=== PATIENT | male | born 1955 | race Caucasian/White ===

== ENCOUNTER 2021-05-10 11:29 | Inpatient (IN) | payer MEDICARE ==
[2021-05-10 11:50] LABS: Basophils # (A) 0.1 k/uL (0-0.2); Basophils % (A) 1 %; Eosinophils # (A) 0.2 k/uL (0-0.7); Eosinophils % (A) 4 %; HCT 52.1 % (39.0-53.0); HGB 17.4 gm/dL (13.0-17.5); Lymphocytes % (A) 18 %; MCH 29.9 pg (25.0-35.0); MCHC 33.4 g/dL (31.0-37.0); MCV 89.6 fL (80.0-100.0); Mean Platelet Volume 7.7; Monocytes # (A) 0.3 k/uL (0-1.0); Monocytes % (A) 6 %; Neutrophils # (A) 3.6 k/uL (1.3-7.7); Neutrophils % (A) 69 %; Platelet Count 146 k/uL (150-450); RBC 5.82 m/uL (4.30-5.90); RDW 13.2 % (11.5-15.5); WBC 5.2 k/uL (3.8-10.6)
[2021-05-10] MEDS ORDERED: MORPHINE SULFATE 2 MG/ML SYRINGE IVP PRN (11:56)
[2021-05-10 12:02] LABS: Albumin 4.5 g/dL (3.5-5.0); Calcium 9.2 mg/dL (8.4-10.2); Magnesium 2.2 mg/dL (1.6-2.3); Potassium 4.2 mmol/L (3.5-5.1); Total Bilirubin 0.9 mg/dL (0.2-1.3); Total Protein 7.6 g/dL (6.3-8.2)
--- NOTE | 2021-05-10 12:04 | ED ---
General Adult HPI - General Chief complaint: Chest Pain Stated complaint: STEMI Source: patient, EMS, RN notes reviewed, old records reviewed Mode of arrival: EMS Limitations: no limitations - History of Present Illness Initial comments: 65-year-old male history of hypertension presents from outside hospital with acute ST segment elevated myocardial infarction. Patient had presented to outside hospital with chest discomfort and was noted to have an inferior ST segment elevated myocardial infarction. He was given aspirin, nitroglycerin, and TNKase. He was transferred for cardiology evaluation. He has no chest pain at the time my evaluation. He had 2 episodes over the past 12 hours which are currently completely resolved. No dyspnea. No diaphoresis or vomiting. No prior history of CAD. - Related Data Home Medications Medication Instructions Recorded Confirmed Compounded Thyroid Unknown 1 cap PO HS 05/10/21 05/10/21 Empagliflozin [Jardiance] 5 mg PO DAILY 05/10/21 05/10/21 Allergies Allergy/AdvReac Type Severity Reaction Status Date / Time cephalexin [From Keflex] Allergy Abdominal Verified 05/10/21 11:42 Pain Penicillins Allergy Unknown Verified 05/10/21 11:42 Childhood codeine AdvReac Abdominal Verified 05/10/21 11:42 Pain Review of Systems ROS Statement: Those systems with pertinent positive or pertinent negative responses have been documented in the HPI. ROS Other: All systems not noted in ROS Statement are negative. Past Medical History Past Medical History: Asthma History of Any Multi-Drug Resistant Organisms: None Reported Past Surgical History: No Surgical Hx Reported Past Psychological History: No Psychological Hx Reported Smoking Status: Never smoker Past Alcohol Use History: None Reported Past Drug Use History: None Reported General Exam Limitations: no limitations General appearance: alert, in no apparent distress Head exam: Present: atraumatic, normocephalic Eye exam: Present: normal appearance, PERRL ENT exam: Present: normal exam Neck exam: Present: normal inspection. Absent: tenderness, meningismus Respiratory exam: Present: normal lung sounds bilaterally. Absent: respiratory distress, wheezes Cardiovascular Exam: Present: normal rhythm, bradycardia GI/Abdominal exam: Present: soft. Absent: distended, tenderness, guarding Extremities exam: Present: normal inspection, normal capillary refill. Absent: pedal edema, calf tenderness Neurological exam: Present: alert, oriented X3, CN II-XII intact. Absent: motor sensory deficit Psychiatric exam: Present: normal affect, normal mood Skin exam: Present: warm, dry, intact. Absent: cyanosis, diaphoretic Course Vital Signs 05/10/21 11:30 Temperature 98.1 F Pulse Rate 72 Respiratory 18 Rate Blood Pressure 141/105 O2 Sat by Pulse 94 L Oximetry - Reevaluation(s) Reevaluation #1: 05/10/21 12:00 There are currently no ICU beds. Patient will be monitored in the emergency department and will possibly be admitted to a 3 S. telemetry bed. Reevaluation #2: 05/10/21 12:[address] Danielson, recommends aspirin and heparin. These orders have been initiated. EKG Findings - EKG Comments: EKG Findings:: Sinus bradycardia low voltage, rate of 51, T-wave inversion and ST segment depression in lead 3 and aVF. KS interval 173, QRS duration 106, QTC 365, no ST segment elevation. Medical Decision Making - Medical Decision Making 65-year-old male presenting with acute inferior TX status post TNK, at outside hospital. Patient chest pain-free. Repeat laboratory studies will be ordered these results are pending. I did discuss case with the admitting physician Dr. Hoover as well as municipal clerk Dr. Danielson and the test facility engineer Dr. Louis. At this time the patient will be held in the emergency department as there is no ICU beds. If patient remains stable he will be a candidate for a 3 S. stepdown bed. - Lab Data Result diagrams: 05/10/21 11:34 Lab Results 05/10/21 Range/Units 11:34 WBC 5.2 (3.8-10.6) k/uL RBC 5.82 (4.30-5.90) m/uL Hgb 17.4 (13.0-17.5) gm/dL Hct 52.1 (39.0-53.0) % MCV 89.6 (80.0-100.0) fL MCH 29.9 (25.0-35.0) pg MCHC 33.4 (31.0-37.0) g/dL RDW 13.2 (11.5-15.5) % Plt Count 146 L (150-450) k/uL MPV 7.7 Neutrophils % 69 % Lymphocytes % 18 % Monocytes % 6 % Eosinophils % 4 % Basophils % 1 % Neutrophils # 3.6 (1.3-7.7) k/uL Lymphocytes # 1.0 (1.0-4.8) k/uL Monocytes # 0.3 (0-1.0) k/uL Eosinophils # 0.2 (0-0.7) k/uL Basophils # 0.1 (0-0.2) k/uL Disposition Clinical Impression: ST elevation myocardial infarction (STEMI) Disposition: ADMITTED IP TO THIS HOSP Condition: Serious Is patient prescribed a controlled substance at d/c from ED?: No Referrals: Tian Xavier MD [Primary Care Provider] - 1-2 days Time of Disposition: 12:15
[2021-05-10 12:12] LABS: Partial Thromboplastin Time 23.4 sec (22.0-30.0); Prothrombin Time 10.6 sec (9.0-12.0)
[2021-05-10] MEDS ORDERED: CALCIUM CARBONATE 500 MG CHEWABLE PO PRN (12:30)
[2021-05-10] MEDS ORDERED: MAG HYDROX/AL HYDROX/SIMETH 30 ML CUP PO PRN (12:30)
[2021-05-10] MEDS ORDERED: ONDANSETRON 4 MG/2 ML VIAL IVP PRN (12:30)
[2021-05-10] MEDS ORDERED: NALOXONE 0.4 MG/ML 1 ML VIAL IV PRN (12:30)
[2021-05-10] MEDS ORDERED: MORPHINE SULFATE 4 MG/ML SYRINGE IVP PRN (12:30)
--- NOTE | 2021-05-10 12:36 | P.HPIM ---
History of Present Illness H&P Date: 05/10/21 65-year-old male with past medical history of hypothyroidism and admitted to the hospital with chest pain substernally patient was in another hospital where he was found to have ST elevation [place] given TPA Chest pain resolved' Patient feels much better today Constitutional: No acute distress, conversant, pleasant Eyes: Anicteric sclerae, moist conjunctiva, no lid-lag PERRLA ENMT: NC/AT Oropharynx clear, no erythema, exudates Neck: Supple, FROM, no masses, or JVD No carotid bruits No thyromegaly Lungs: Clear to auscultation Clear to percussion Normal respiratory effort, no accessory muscle use Cardiovascular: Heart regular in rate and rhythm, No murmurs, gallops, or rubs No peripheral edema Abdominal: Soft Nontender, no guarding, rebound or rigidity Abdomen moving with respiration Normoactive bowel sounds No hepatomegaly, No splenomegaly No palpable mass No abdominal wall hernia noted Skin: Normal temperature, tone, texture, turgor No induration No subcutaneous nodules No rash, lesions No ulcers Extremities: No digital cyanosis No clubbing Pedal pulses intact and symmetrical Radial pulses intact and symmetrical Normal gait and station No calf tenderness Psychiatric:Alert and oriented to person, place and time Appropriate affect Intact judgement Neuro: Muscles Strength 5/5 in all 4 extremities Sensation to light touch grossly present throughout Cranial nerves II-XII grossly intact No focal sensory deficits Review of systems and systems has been reviewed all negative and positive findings as per history of present illness ST elevation [place] status post TPA cardiology has been consulted Hypothyroidism Pain control Past Medical History Past Medical History: Asthma History of Any Multi-Drug Resistant Organisms: None Reported Past Surgical History: No Surgical Hx Reported Past Psychological History: No Psychological Hx Reported Smoking Status: Never smoker Past Alcohol Use History: None Reported Past Drug Use History: None Reported Medications and Allergies Home Medications Medication Instructions Recorded Confirmed Type Compounded Thyroid Unknown 1 cap PO HS 05/10/21 05/10/21 History Empagliflozin [Jardiance] 5 mg PO DAILY 05/10/21 05/10/21 History Allergies Allergy/AdvReac Type Severity Reaction Status Date / Time cephalexin [From Keflex] Allergy Abdominal Verified 05/10/21 11:42 Pain Penicillins Allergy Unknown Verified 05/10/21 11:42 Childhood codeine AdvReac Abdominal Verified 05/10/21 11:42 Pain Physical Exam Vitals: Vital Signs Temp Pulse Resp BP Pulse Ox 05/10/21 11:30 98.1 F 72 18 141/105 94 L Intake and Output 05/09/21 05/10/21 05/10/21 22:59 06:59 14:59 Other: Weight 83.915 kg Results CBC & Chem 7: 05/10/21 11:34 05/10/21 11:34 Labs: Abnormal Lab Results - Last 24 Hours (Table) 05/10/21 05/10/21 05/10/21 Range/Units 11:34 11:34 11:34 Plt Count 146 L (150-450) k/uL BUN 24 H (9-20) mg/dL Glucose 140 H (74-99) mg/dL Troponin I 0.382 H* (0.000-0.034) ng/mL
[2021-05-10] MEDS: SODIUM CHLORIDE 0.9% 1,000 ML IV SCH (12:44)
[2021-05-10] MEDS: ATORVASTATIN 80 MG TAB PO SCH ×2 (13:24→13:34)
[2021-05-10] MEDS: HEPARIN SOD,PORK IN 0.45% NACL 25,000 UNIT in 0.45% NACL 1 250ML.BAG IV SCH (13:28)
[2021-05-10] MEDS ORDERED: ALPRAZolam 0.25 MG TAB PO PRN (15:33)
[2021-05-10] MEDS ORDERED: ALPRAZolam 0.5 MG TAB PO PRN (15:33)
--- NOTE | 2021-05-10 15:39 | P.CRDCN ---
History of Present Illness Consult date: 05/10/21 History of present illness: This is a 65-year-old gentleman with history of hypothyroidism and yvu-hbvasjb-zbgoqjsku diabetes mellitus, who lives by himself had sense of chest tightness around 2 AM last night. Patient was able to go to bed, but in the morning around 8:30. Patient again started having discomfort on the left side of chest and left shoulder area. There might have been some radiation to the left arm. It was not very intense but annoying. Patient drove himself to the hospital. His EKG showed mild elevation in inferior leads size to of inferior wall TX. Patient received thrombolytic therapy at the [facility] and was subsequent transferred to this hospital. By the time patient came to the hospital. Patient has been free of any pain. His EKGs showed resolution of the ST elevations with complaints of T-wave inversion in inferior leads and mild bradycardia. Patient had mild nausea. No shortness of breath at the time of my examination patient is very comfortable. Patient will continue current medical therapy. Beta blockers are being held because of bradycardia. He is on aspirin, Plavix and heparin. We'll proceed with cardiac catheterization tomorrow and further recommend she'll depend upon the findings on the cath. Patient already had an echocardiogram Review of Systems As per the chart Past Medical History Past Medical History: Asthma History of Any Multi-Drug Resistant Organisms: None Reported Past Surgical History: No Surgical Hx Reported Past Psychological History: No Psychological Hx Reported Smoking Status: Never smoker Past Alcohol Use History: None Reported Past Drug Use History: None Reported Medications and Allergies Home Medications Medication Instructions Recorded Confirmed Type Compounded Thyroid Unknown 1 cap PO HS 05/10/21 05/10/21 History Empagliflozin [Jardiance] 5 mg PO DAILY 05/10/21 05/10/21 History Allergies Allergy/AdvReac Type Severity Reaction Status Date / Time cephalexin [From Keflex] Allergy Abdominal Verified 05/10/21 11:42 Pain Penicillins Allergy Unknown Verified 05/10/21 11:42 Childhood codeine AdvReac Abdominal Verified 05/10/21 11:42 Pain Physical Exam Vitals: Vital Signs Temp Pulse Resp BP Pulse Ox 05/10/21 13:30 67 18 162/90 95 05/10/21 11:30 98.1 F 72 18 141/105 94 L Intake and Output 0205/10/21 05/10/21 06:59 14:59 22:59 Other: Weight 83.915 kg GENERAL EXAM: Patient is alert and oriented and doesn't appear to be in any acute distress HEENT: Normocephalic. Normal reaction of pupils, equal size, normal range of e xtraocular motion. No erythema or exudates in the throat. NECK: No masses, no nuchal rigidity. CHEST: No chest wall deformity. LUNGS: Equal air entry with no crackles or wheeze. HEART: S1 and S2 normal with no audible mumurs or gallops. Regular rhythm, femorals equal on both sides.. ABDOMEN: No hepatosplenomegaly, normal bowel sounds, no guarding or rigidity. SKIN: No rashes CENTRAL NERVOUS SYSTEM: No focal deficits. EXTREMITIES: No cyanosis, clubbing or edema. Results 05/10/21 11:34 05/10/21 11:34 Cardiac Enzymes 05/10/21 05/10/21 Range/Units 11:34 11:34 AST 34 (17-59) U/L Troponin I 0.382 H* (0.000-0.034) ng/mL Coagulation 05/10/21 Range/Units 11:34 PT 10.6 (9.0-12.0) sec APTT 23.4 (22.0-30.0) sec CBC 05/10/21 Range/Units 11:34 WBC 5.2 (3.8-10.6) k/uL RBC 5.82 (4.30-5.90) m/uL Hgb 17.4 (13.0-17.5) gm/dL Hct 52.1 (39.0-53.0) % Plt Count 146 L (150-450) k/uL Comprehensive Metabolic Panel 05/10/21 Range/Units 11:34 Sodium 137 (137-145) mmol/L Potassium 4.2 (3.5-5.1) mmol/L Chloride 103 (98-107) mmol/L Carbon Dioxide 26 (22-30) mmol/L BUN 24 H (9-20) mg/dL Creatinine 1.16 (0.66-1.25) mg/dL Glucose 140 H (74-99) mg/dL Calcium 9.2 (8.4-10.2) mg/dL AST 34 (17-59) U/L ALT 26 (4-49) U/L Alkaline Phosphatase 66 (38-126) U/L Total Protein 7.6 (6.3-8.2) g/dL Albumin 4.5 (3.5-5.0) g/dL Current Medications Generic Name Dose Route Start Last Admin Trade Name Freq PRN Reason Stop Dose Admin Acetaminophen 650 mg 05/10/21 12:30 Acetaminophen Tab 325 Mg Tab PO Q6HR PRN Mild Pain or Fever > 100.5 Al Hydroxide/Mg Hydroxide 15 ml 05/10/21 12:30 Mag Hydrox/Al Hydrox/Simeth 30 Ml Cup PO Q6HR PRN Indigestion Aspirin 325 mg 05/11/21 09:00 Aspirin 325 Mg Tab PO DAILY [facility] Atorvastatin Calcium 80 mg 05/10/21 12:00 05/10/21 13:34 Atorvastatin 80 Mg Tab PO Not Given DAILY [facility] Calcium Carbonate/Glycine 1,000 mg 05/10/21 12:30 Calcium Carbonate 500 Mg Chewable PO Q4HR PRN Dyspepsia Clopidogrel Bisulfate 75 mg 05/10/21 14:00 Clopidogrel 75 Mg Tab PO DAILY [facility] Heparin Sodium/Sodium Chloride 250 mls @ 10.07 mls/hr 05/10/21 12:00 05/10/21 13:28 25,000 unit/ Sodium Chloride IV 12 units/kg/hr .Q24H JANEE 10.07 mls/hr Administration Protocol 12 UNITS/KG/HR Sodium Chloride 1,000 mls @ 75 mls/hr 05/10/21 12:30 05/10/21 12:44 Saline 0.9% IV Not Given .[id number] [facility] Isosorbide Mononitrate 30 mg 05/11/21 09:00 Isosorbide Mononitrate Er 30 Mg Tab.Er.24h PO DAILY [facility] Lisinopril 5 mg 05/10/21 14:00 Lisinopril 5 Mg Tab PO DAILY [facility] Morphine Sulfate 4 mg 05/10/21 12:30 Morphine Sulfate 4 Mg/Ml Syringe IVP Q4HR PRN Severe Pain Naloxone HCl 0.2 mg 05/10/21 12:30 Naloxone 0.4 Mg/Ml 1 Ml Vial IV Q2M PRN Opioid Reversal Ondansetron HCl 4 mg 05/10/21 12:30 Ondansetron 4 Mg/2 Ml Vial IVP Q8HR PRN Nausea And Vomiting Intake and Output 05/10/21 05/10/21 05/10/21 06:59 14:59 22:59 Other: Weight 83.915 kg Patient Weight 05/11/21 06:59 Weight 83.915 kg 05/10/21 11:34 05/10/21 11:34 EKG Interpretations (text) Sinus rhythm with evidence of inferior wall TX Assessment and Plan (1) Hypothyroidism Current Visit: Yes Status: Acute Code(s): E03.9 - HYPOTHYROIDISM, UNSPECIFIED SNOMED Code(s): 16700102 (2) ST elevation myocardial infarction (STEMI) Current Visit: Yes Status: Acute Code(s): I21.3 - ST ELEVATION (STEMI) MYOCARDIAL IN[facility]ARCTION OF [facility] SITE SNOMED Code(s): 83354923 (3) Non-insulin dependent diabetes mellitus Current Visit: Yes Status: Acute Code(s): [id number] - SNOMED Code(s): 04994972 Plan: Continue current medical therapy including heparin, aspirin and Plavix. Patient is on SRINATH inhibitor and also lipid-lowering agents. Resume all medications. Echocardiogram. Cardiac cath and further intervention as needed
[2021-05-10] MEDS: CLOPIDOGREL 75 MG TAB PO SCH (16:04)
[2021-05-10] MEDS: lisinopriL 5 MG TAB PO SCH (16:04)
[2021-05-10 16:11] LABS: Basophils # (A) 0.1 k/uL (0-0.2); Basophils % (A) 1 %; Eosinophils # (A) 0.2 k/uL (0-0.7); Eosinophils % (A) 3 %; HCT 53.4 % (39.0-53.0); HGB 18.3 gm/dL (13.0-17.5); Lymphocytes # (A) 1.6 k/uL (1.0-4.8); Lymphocytes % (A) 26 %; MCH 30.8 pg (25.0-35.0); MCHC 34.3 g/dL (31.0-37.0); Mean Platelet Volume 7.4; Monocytes # (A) 0.3 k/uL (0-1.0); Monocytes % (A) 5 %; Neutrophils # (A) 3.9 k/uL (1.3-7.7); Neutrophils % (A) 64 %; Platelet Count 172 k/uL (150-450); RBC 5.93 m/uL (4.30-5.90); RDW 13.7 % (11.5-15.5); WBC 6.1 k/uL (3.8-10.6)
--- NOTE | 2021-05-10 16:12 | ECHOF ---
Referral Reason:STEMI MEASUREMENTS -------- HEIGHT: 175.3 cm WEIGHT: 83.9 kg BP: RVIDd: 3.3 cm (< 3.3) IVSd: 1.2 cm (0.6 - 1.1) LVIDd: 5.5 cm (3.9 - 5.3) LVPWd: 1.5 cm (0.6 - 1.1) IVSs: 1.6 cm LVIDs: 3.8 cm LVPWs: 1.9 cm LA Diam: 4.1 cm (2.7 - 3.8) LAESV Index (A-L): 27.28 ml/m Ao Diam: 3.3 cm (2.0 - 3.7) AV Cusp: 1.9 cm (1.5 - 2.6) LA Diam: 3.8 cm (2.7 - 3.8) MV EXCURSION: 21.171 mm (> 18.000) MV EF SLOPE: 84 mm/s (70 - 150) EPSS: 0.6 cm MV E Panfilo: 0.71 m/s MV DecT: 201 ms MV A Panfilo: 0.96 m/s MV E/A Ratio: 0.74 RAP: 5.00 mmHg RVSP: 21.05 mmHg FINDINGS -------- Sinus rhythm. This was a technically adequate study. The left ventricular size is normal. There is moderate concentric left ventricular hypertrophy. O verall left ventricular systolic function is low-normal with, an EF between 50 - 55 %. The right ventricle is normal in size. Normal LA size by volume 22+/-6 ml/m2. The right atrial size is normal. The aortic valve is trileaflet, and appears structurally normal. No aortic stenosis or regurgitation. Mild mitral regurgitation is present. Mild tricuspid regurgitation present. Right ventricular systolic pressure is normal at < 35 mmHg. There is no pulmonic regurgitation present. Echo free space represents a pericardial fat pad. CONCLUSIONS -------- 1. The left ventricular size is normal. 2. There is moderate concentric left ventricular hypertrophy. 3. Overall left ventricular systolic function is low-normal with, an EF between 50 - 55 %. 4. The right ventricle is normal in size. 5. Normal LA size by volume 22+/-6 ml/m2. 6. The right atrial size is normal. 7. The aortic valve is trileaflet, and appears structurally normal. No aortic stenosis or regurgitati on. 8. Mild mitral regurgitation is present. 9. Mild tricuspid regurgitation present. 10. Echo free space represents a pericardial fat pad. ARABIC TEACHER: Hannah Su RDCS
[2021-05-10 20:00] LABS: Glucose,Whole Blood 98 mg/dL (75-99)
[2021-05-10 20:00] LABS: Glucose,Whole Blood 28 mg/dL (75-99)
[2021-05-10] MEDS ORDERED: HEPARIN SODIUM 1,000 UN/ML (10ML VL) IV PRN (23:14)
[2021-05-11] MEDS: SODIUM CHLORIDE 0.9% 1,000 ML IV SCH ×2 (06:36→20:43)
[2021-05-11] MEDS ORDERED: ISOSORBIDE MONONITRATE ER 30 MG TAB.ER.24H PO SCH (09:00)
[2021-05-11] MEDS ORDERED: ASPIRIN 325 MG TAB PO SCH (09:00)
[2021-05-11] MEDS: lisinopriL 5 MG TAB PO SCH (09:01)
[2021-05-11] MEDS: CLOPIDOGREL 75 MG TAB PO SCH (09:01)
[2021-05-11] MEDS: ATORVASTATIN 80 MG TAB PO SCH ×2 (09:01→09:04)
[2021-05-11] MEDS ORDERED: LIDOCAINE 1% INJ 10MG/ML (20 ML MDV) ONE (10:32)
[2021-05-11] MEDS ORDERED: VERAPAMIL 2.5 MG/ML 2 ML AMP ONE (10:32)
[2021-05-11] MEDS ORDERED: IV FLUID CONTINUATION 1,000 ML IV ONE (10:40)
[2021-05-11] MEDS ORDERED: fentaNYL (PF) 50 MCG/ML 2 ML AMP ONE (10:47)
[2021-05-11] MEDS ORDERED: LIDOCAINE 1% INJ 10MG/ML (20 ML MDV) SQ ONE (10:57)
[2021-05-11] MEDS ORDERED: MIDAZOLAM 2 MG/2 ML VIAL IV ONE (10:58)
[2021-05-11] MEDS ORDERED: fentaNYL (PF) 50 MCG/ML 2 ML AMP IV ONE (10:58)
[2021-05-11] MEDS ORDERED: VERAPAMIL SYRINGE (5 MG/10 ML) INTRAARTER ONE (11:00)
[2021-05-11] MEDS: HEPARIN SODIUM 1,000 UN/ML (10ML VL) IV ONE ×2 (11:01→11:15)
[2021-05-11] MEDS ORDERED: HEPARIN SODIUM 1,000 UN/ML (10ML VL) ONE (11:01)
[2021-05-11] MEDS ORDERED: CLOPIDOGREL 75 MG TAB ONE (11:16)
[2021-05-11] MEDS ORDERED: CLOPIDOGREL 75 MG TAB PO ONE (11:16)
[2021-05-11] MEDS ORDERED: IOPAMIDOL-370 125ML BTL INJ ONE (11:21)
[2021-05-11] MEDS: NITROGLYCERIN 1000MCG/10ML SYRINGE INTRAARTER ONE ×2 (11:27→12:02)
[2021-05-11] MEDS ORDERED: IOPAMIDOL-370 100ML BTL INJ ONE ×2 (11:52→12:03)
--- NOTE | 2021-05-11 12:15 | P.PN ---
Subjective Progress Note Date: 05/11/21 Principal diagnosis: She is okay no chest pain today 65-year-old male with past medical history of hypothyroidism and admitted to the hospital with chest pain substernally patient was in another hospital where he was found to have ST elevation [place] given TPA Chest pain resolved' Patient feels much better today Constitutional: No acute distress, conversant, pleasant Eyes: Anicteric sclerae, moist conjunctiva, no lid-lag PERRLA ENMT: NC/AT Oropharynx clear, no erythema, exudates Neck: Supple, FROM, no masses, or JVD No carotid bruits No thyromegaly Lungs: Clear to auscultation Clear to percussion Normal respiratory effort, no accessory muscle use Cardiovascular: Heart regular in rate and rhythm, No murmurs, gallops, or rubs No peripheral edema Abdominal: Soft Nontender, no guarding, rebound or rigidity Abdomen moving with respiration Normoactive bowel sounds No hepatomegaly, No splenomegaly No palpable mass No abdominal wall hernia noted Skin: Normal temperature, tone, texture, turgor No induration No subcutaneous nodules No rash, lesions No ulcers Extremities: No digital cyanosis No clubbing Pedal pulses intact and symmetrical Radial pulses intact and symmetrical Normal gait and station No calf tenderness Psychiatric:Alert and oriented to person, place and time Appropriate affect Intact judgement Neuro: Muscles Strength 5/5 in all 4 extremities Sensation to light touch grossly present throughout Cranial nerves II-XII grossly intact No focal sensory deficits Review of systems and systems has been reviewed all negative and positive findings as per history of present illness ST elevation [place] status post TPA cardiology has been consulted Hypothyroidism Pain control For cardiac cath today Objective - Vital Signs Vital signs: Vital Signs Temp 98.0 F 05/11/21 09:04 Pulse 75 05/11/21 09:04 Resp 18 05/11/21 09:04 BP 115/90 05/11/21 09:04 Pulse Ox 96 05/11/21 09:04 Intake & Output 05/10/21 05/11/21 05/11/21 18:59 06:59 18:59 Intake Total 188.555 500 Balance 188.555 500 Weight 83.915 kg Intake: IV 500 Intake, IV Titration 188.555 Amount Heparin Sod,Pork in 0.45% 188.555 NaCl 25,000 unit In 0.45 % NaCl 1 250ml.bag @ 12 UNITS/KG/HR 10.07 mls/hr IV .Q24H [facility] Rx#: [id number] - Labs CBC & Chem 7: 05/10/21 15:46 05/10/21 11:34 Labs: Abnormal Lab Results - Last 24 Hours (Table) 05/10/21 05/10/21 05/10/21 Range/Units 11:34 15:46 15:46 RBC 5.93 H (4.30-5.90) m/uL Hgb 18.3 H (13.0-17.5) gm/dL Hct 53.4 H (39.0-53.0) % APTT (22.0-30.0) sec POC Glucose (mg/dL) (75-99) mg/dL Troponin I 0.382 H* 5.620 H* (0.000-0.034) ng/mL 05/10/21 05/10/21 05/10/21 Range/Units 18:25 18:25 19:55 RBC (4.30-5.90) m/uL Hgb (13.0-17.5) gm/dL Hct (39.0-53.0) % APTT 34.2 H (22.0-30.0) sec POC Glucose (mg/dL) 28 L (75-99) mg/dL Troponin I 7.320 H* (0.000-0.034) ng/mL 05/11/21 Range/Units 04:45 RBC (4.30-5.90) m/uL Hgb (13.0-17.5) gm/dL Hct (39.0-53.0) % APTT 83.2 H (22.0-30.0) sec POC Glucose (mg/dL) (75-99) mg/dL Troponin I (0.000-0.034) ng/mL
[2021-05-11] MEDS ORDERED: NITROGLYCERIN SL TABS 0.4 MG TAB SUBLINGUAL PRN (12:30)
[2021-05-11] MEDS ORDERED: ZOLPIDEM 5 MG TAB PO PRN (12:30)
[2021-05-11] MEDS ORDERED: MAG HYDROX/AL HYDROX/SIMETH 30 ML CUP PO PRN (12:30)
[2021-05-11] MEDS ORDERED: SODIUM CHLORIDE 0.9% 1,000 ML in EMPTY BAG 1 BAG IV SCH (12:30)
[2021-05-11] MEDS ORDERED: ATROPINE SULFATE 0.1 MG/ML 10ML SYRINGE IV PRN (12:30)
[2021-05-11] MEDS ORDERED: RX INFO: IV CONTRAST WAS GIVEN 1 EACH MISC MISCELLANE PRN (12:30)
--- NOTE | 2021-05-11 12:30 | P.CARDCATH ---
Date of Procedure: 05/11/21 Description of Procedure: PERCUTANEOUS TRANSLUMINAL CORONARY ANGIOPLASTY CLINICAL INFORMATION: The patient is a 65-year-old male, with a history of diabetes, presented to [facility] with an acute inferior wall myocardial infarction, received thrombolytics with resolution of his discomfort and EKG ch anges. He underwent cardiac catheterization by Dr. Danielson and was found to have critical stenosis in the mid RCA, right PDA and mid LAD. Recommendations were made regarding angioplasty and stenting, the procedure and the risk and the complications were discussed with the patient was in agreement and understanding PROCEDURE: A 6 Turkish 4 bend right Ian guiding catheter was introduced into the system. After cannulating the right coronary ostium, a 0.014 balanced medium J-wire was advanced across the lesion and positioned distally. Following that a 2.5 x 12 mm Treck button was advanced and inflation and the PDA and mid RCA were done at a maximum of 8 may. Following that a 2.5 x 15 mm chasity point stent was deployed in the PDA. It was dilated at 16 may. Following that a 3.25 x 15 mm chasity point stent was deployed in the mid segment and post dilated at 16 may, the stent was postdilated with a 3.5 x 12 mm NC Treck balloon at a maximum of 12 may. After removing the balloon 3.5 x 18 mm chasity point stent was deployed proximally overlapping the mid segment and post dilated at 16 may. After the last inflation, after appropriate wait, the balloon and the guidewire were withdrawn back into the guiding catheter. Images were obtained and repeated. Those images reveal stable successful stenting. At that point, the guiding catheter, the balloon, and guidewire were removed. Following that a 6-Turkish 3.5 Ian catheter was introduced and the system, after cannulating the left main, a 0.014 balanced medium weight J-wire was introduced in the LAD, positioned distally. The mid lesion was dilated with a 2.5 x 12 mm balloon, after removing the balloon a 4.0 x 28 mm chasity point stent was deployed postdilated at 14 may, after removing the balloon a 3.5 x 12 mm chasity point stent was deployed distal to the first one and postdilated at 16 may. After the last inflation and after appropriate wait the balloon, the wire were withdrawn, images were obtained and revealed successful stenting. At that point the sheath was removed. Hemostasis was obtained with deployment TR or band. There were no immediate complications. The patient was returned to the room in stable condition. Of note, the patient received additional 4000 units of heparin as well as loading dose Plavix. He had chest discomfort and EKG changes predominantly with the LAD inflation that resolved at the end of the procedure. His ACT was follow. RESULTS: 1. Successful stenting of the right PDA with reduction of stenosis from 99 % to 0%. 2. Successful stenting of the mid and proximal RCA with reduction of stenosis from 99% to 0%. 3. Successful stenting of the mid LAD with reduction of the stenosis from 90% to 0%. RECOMMENDATIONS: The procedure as well as is the results were discussed with the patient who was in full understanding and agreement. He will continue on dual antiplatelets treatment for at least one year in addition to aggressive coronary artery risk modifications. Depending on his progress further recommendations will be made. Duration of sedation 59 minutes.
[2021-05-11 13:01] LABS: Basophils # (A) 0.1 k/uL (0-0.2); Basophils % (A) 1 %; Eosinophils # (A) 0.3 k/uL (0-0.7); Eosinophils % (A) 4 %; HCT 52.6 % (39.0-53.0); HGB 16.3 gm/dL (13.0-17.5); Lymphocytes # (A) 1.4 k/uL (1.0-4.8); Lymphocytes % (A) 24 %; MCH 28.8 pg (25.0-35.0); MCHC 30.9 g/dL (31.0-37.0); MCV 93.2 fL (80.0-100.0); Mean Platelet Volume 7.4; Monocytes # (A) 0.3 k/uL (0-1.0); Monocytes % (A) 6 %; Neutrophils # (A) 3.8 k/uL (1.3-7.7); Neutrophils % (A) 64 %; Platelet Count 139 k/uL (150-450); RBC 5.65 m/uL (4.30-5.90); RDW 13.6 % (11.5-15.5)
[2021-05-11 13:12] LABS: ALT 22 U/L (4-49); AST 52 U/L (17-59); African American GFR (CKD) 79 (>60 ml/min/1.73 sqM); Albumin 3.9 g/dL (3.5-5.0); Alkaline Phosphatase 44 U/L (38-126); Anion Gap 9 mmol/L; Blood Urea Nitrogen 21 mg/dL (9-20); Calcium 8.7 mg/dL (8.4-10.2); Carbon Dioxide 22 mmol/L (22-30); Chloride 105 mmol/L (98-107); Glucose 107 mg/dL (74-99); Non-African American GFR(CKD) 68 (>60 ml/min/1.73 sqM); Potassium 4.3 mmol/L (3.5-5.1); Sodium 136 mmol/L (137-145); Total Bilirubin 1.2 mg/dL (0.2-1.3); Total Protein 6.9 g/dL (6.3-8.2)
[2021-05-11] MEDS: ACETAMINOPHEN TAB 325 MG TAB PO PRN ×2 (14:39→20:40)
[2021-05-11] MEDS: HEPARIN SOD,PORK IN 0.45% NACL 25,000 UNIT in 0.45% NACL 1 250ML.BAG IV SCH (15:16)
--- NOTE | 2021-05-11 15:50 | P.CARDCATH ---
Date of Procedure: 05/11/21 Preoperative Diagnosis: Inferior wall [place], status post thrombolytic therapy Postoperative Diagnosis: Severe 2 vessel disease Procedure(s) Performed: Left heart catheterization without left ventriculography Description of Procedure: HISTORY: This is a 65-year-old gentleman who was admitted to the hospital with inferior wall [place], status post thrombolytic therapy at [facility] with evidence of reperfusion. Patient is advised to have cardiac catheterization for definitive diagnosis and further intervention. CONSENT:I have discussed the risks, benefits and alternative therapies for the above-mentioned procedure and for both sedation/analgesia as well as necessary blood product administration, if indicated, as they pertain to this patient. The patient has indicated understanding and acceptance of the risks and procedures discussed. [] PROCEDURE: Patient was brought to the lab in a fasting state. Patient was given some IV sedation. The right wrist is infiltrated with lidocaine and right radial l artery was entered using Seldinger technique. A 6-Telugu catheter was left in place and selective coronary arteriography was performed. Patient tolerated the procedure well. Patient was found to have severe two-vessel disease and went on to have stent placement by Dr. Wade.. No immediate complications were noted and patient was transferred to stepdown unit in a stable condition Conscious Sedation: Versed 1mg Fentanyl 50 g Duration 15minutes HEMODYNAMICS: The aortic pressure is about 130/70. The left ventricle end- diastolic pressure is 5. There was no gradient across the aortic valve SELECTIVE CORONARY ARTERIOGRAPHY: LEFT MAIN: This is of good caliber vessel free of any occlusive disease. Device into the left anterior and circumflex and is coronary artery immediately THE LEFT ANTERIOR DESCENDING CORONARY ARTERY: This is a good caliber vessel with a long lesion in the mid segment with about 90-90% stenosis. The rest of the vessel is free of occlusive disease THE LEFT CIRCUMFLEX AND IS CORONARY ARTERY: . This is a good caliber vessel giving a to small OM and also PLV branch. The circumflex is free of any significant focal lesions THE RIGHT CORONARY ARTERY: . This is a moderate caliber vessel with a diffuse disease in the proximal and mid segments with about 99% stenosis in the mid segment. The PDA branch has about 90% stenosis LEFT VENTRICULOGRAPHY: . This was not performed FINAL IMPRESSION: . Severe two-vessel disease with 2 lesion in the RCA and significant lesion in mid LAD PLAN: Dr. Polo is proceeding with stent placement of the RCA and LAD PROGNOSIS: Fair
[2021-05-11 17:04] LABS: Glucose,Whole Blood 103 mg/dL (75-99)
[2021-05-11 20:37] LABS: Glucose,Whole Blood 151 mg/dL (75-99)
[2021-05-11] MEDS: METOPROLOL TARTRATE 25 MG TAB PO SCH (20:43)
[2021-05-12] MEDS: SODIUM CHLORIDE 0.9% 1,000 ML IV SCH (05:41)
[2021-05-12 06:20] LABS: Glucose,Whole Blood 150 mg/dL (75-99)
[2021-05-12] MEDS: ACETAMINOPHEN TAB 325 MG TAB PO PRN ×3 (06:23→21:13)
[2021-05-12 08:05] LABS: Basophils % (A) 1 %; Eosinophils # (A) 0.2 k/uL (0-0.7); Eosinophils % (A) 4 %; HCT 48.7 % (39.0-53.0); HGB 16.1 gm/dL (13.0-17.5); Lymphocytes # (A) 1.4 k/uL (1.0-4.8); Lymphocytes % (A) 21 %; MCH 30.4 pg (25.0-35.0); MCHC 33.1 g/dL (31.0-37.0); MCV 91.9 fL (80.0-100.0); Mean Platelet Volume 7.4; Monocytes # (A) 0.5 k/uL (0-1.0); Monocytes % (A) 8 %; Neutrophils # (A) 4.4 k/uL (1.3-7.7); Neutrophils % (A) 65 %; Platelet Count 157 k/uL (150-450); RBC 5.29 m/uL (4.30-5.90); WBC 6.7 k/uL (3.8-10.6)
[2021-05-12 08:24] LABS: Albumin 3.5 g/dL (3.5-5.0); Potassium 3.9 mmol/L (3.5-5.1); Total Bilirubin 0.5 mg/dL (0.2-1.3); Total Protein 6.1 g/dL (6.3-8.2)
[2021-05-12] MEDS: CLOPIDOGREL 75 MG TAB PO SCH (09:15)
[2021-05-12] MEDS: lisinopriL 5 MG TAB PO SCH (09:15)
[2021-05-12] MEDS: METOPROLOL TARTRATE 25 MG TAB PO SCH (09:15)
[2021-05-12] MEDS: ATORVASTATIN 80 MG TAB PO SCH ×2 (09:15→09:17)
[2021-05-12] MEDS: ASPIRIN 81 MG PO SCH (09:15)
[2021-05-12 12:02] LABS: Glucose,Whole Blood 159 mg/dL (75-99)
[2021-05-12 12:06] LABS: Chol/HDL Ratio 6.16 Ratio; LDL Cholesterol,Calculated 154.2 mg/dL (0.0-131.0)
--- NOTE | 2021-05-12 13:27 | P.PN ---
Subjective Progress Note Date: 05/12/21 Principal diagnosis: Patient feels okay okay no chest pain today 65-year-old male with past medical history of hypothyroidism and admitted to the hospital with chest pain substernally patient was in another hospital where he was found to have ST elevation PA given TPA Chest pain resolved' Patient feels much better today Constitutional: No acute distress, conversant, pleasant Eyes: Anicteric sclerae, moist conjunctiva, no lid-lag PERRLA ENMT: NC/AT Oropharynx clear, no erythema, exudates Neck: Supple, FROM, no masses, or JVD No carotid bruits No thyromegaly Lungs: Clear to auscultation Clear to percussion Normal respiratory effort, no accessory muscle use Cardiovascular: Heart regular in rate and rhythm, No murmurs, gallops, or rubs No peripheral edema Abdominal: Soft Nontender, no guarding, rebound or rigidity Abdomen moving with respiration Normoactive bowel sounds No hepatomegaly, No splenomegaly No palpable mass No abdominal wall hernia noted Skin: Normal temperature, tone, texture, turgor No induration No subcutaneous nodules No rash, lesions No ulcers Extremities: No digital cyanosis No clubbing Pedal pulses intact and symmetrical Radial pulses intact and symmetrical Normal gait and station No calf tenderness Psychiatric:Alert and oriented to person, place and time Appropriate affect Intact judgement Neuro: Muscles Strength 5/5 in all 4 extremities Sensation to light touch grossly present throughout Cranial nerves II-XII grossly intact No focal sensory deficits Review of systems and systems has been reviewed all negative and positive findings as per history of present illness ST elevation PA status post TPA Status post stents by cardiology yesterday and didn't to monitor discharge as per cardiology Hypothyroidism Pain control Objective - Vital Signs Vital signs: Vital Signs Temp 97.8 F 05/12/21 12:11 Pulse 52 L 05/12/21 12:11 Resp 18 05/12/21 12:11 BP 152/86 05/12/21 12:11 Pulse Ox 97 05/12/21 12:11 Intake & Output 05/11/21 05/12/21 05/12/21 18:59 06:59 18:59 Intake Total 2120 1500 600 Balance 2120 1500 600 Weight 83.915 kg Intake: IV 500 Intake, IV Titration 1000 300 Amount Sodium Chloride 0.9% 1, 1000 300 000 ml @ 75 mls/hr IV . [id number] [facility] Rx#:[id number] Oral 620 1200 600 Other: Voiding Method Toilet Toilet # Voids 3 2 - Labs CBC & Chem 7: 05/12/21 07:18 05/12/21 07:18 Labs: Abnormal Lab Results - Last 24 Hours (Table) 05/11/21 05/11/21 05/11/21 Range/Units 12:51 12:51 17:03 APTT 120.3 H* (22.0-30.0) sec Sodium (137-145) mmol/L BUN (9-20) mg/dL Glucose (74-99) mg/dL POC Glucose (mg/dL) 103 H (75-99) mg/dL Total Protein (6.3-8.2) g/dL Cholesterol 207.00 H (0.00-200.00) mg/dL LDL Cholesterol, Calc 154.2 H (0.0-131.0) mg/dL HDL Cholesterol 33.60 L (40.00-60.00) mg/dL 05/11/21 05/12/21 05/12/21 Range/Units 20:35 06:18 07:18 APTT (22.0-30.0) sec Sodium 134 L (137-145) mmol/L BUN 23 H (9-20) mg/dL Glucose 138 H (74-99) mg/dL POC Glucose (mg/dL) 151 H 150 H (75-99) mg/dL Total Protein 6.1 L (6.3-8.2) g/dL Cholesterol (0.00-200.00) mg/dL LDL Cholesterol, Calc (0.0-131.0) mg/dL HDL Cholesterol (40.00-60.00) mg/dL 05/12/21 Range/Units 11:40 APTT (22.0-30.0) sec Sodium (137-145) mmol/L BUN (9-20) mg/dL Glucose (74-99) mg/dL POC Glucose (mg/dL) 159 H (75-99) mg/dL Total Protein (6.3-8.2) g/dL Cholesterol (0.00-200.00) mg/dL LDL Cholesterol, Calc (0.0-131.0) mg/dL HDL Cholesterol (40.00-60.00) mg/dL
[2021-05-12 14:18] VITALS: BMI 27.3
--- NOTE | 2021-05-12 14:39 | PN ---
PROGRESS NOTE This gentleman underwent stenting of RCA in two areas and also LAD performed yesterday by Dr. Wade. He had an acute inferior NM, underwent thrombolytic therapy and came from [facility]. He is doing well, hemodynamically stable. Echo revealed a fairly decent LV function. He is on dual antiplatelet therapy, resting comfortably. Vitals are stable. No JVD. S1-S2 heard normally. No significant murmurs. Lungs are clear. Abdomen is soft, nontender. Lower extremities reveal diminished pulses. Central nervous system grossly within normal limits. Plan is to increase activity and continue current medical regimen and discharge home in a.m. Risk factor modification issues were discussed. MMODL / IJN: [id number] /
[2021-05-12 16:47] LABS: Glucose,Whole Blood 163 mg/dL (75-99)
[2021-05-12 20:29] LABS: Glucose,Whole Blood 155 mg/dL (75-99)
[2021-05-13] MEDS: METOPROLOL TARTRATE 25 MG TAB PO SCH ×2 (00:47→09:02)
[2021-05-13] MEDS: SODIUM CHLORIDE 0.9% 1,000 ML IV SCH ×2 (00:47→06:38)
[2021-05-13 06:12] LABS: Glucose,Whole Blood 133 mg/dL (75-99)
[2021-05-13] MEDS: lisinopriL 5 MG TAB PO SCH (09:02)
[2021-05-13] MEDS: ASPIRIN 81 MG PO SCH (09:02)
[2021-05-13] MEDS: CLOPIDOGREL 75 MG TAB PO SCH (09:02)
[2021-05-13] MEDS: ATORVASTATIN 80 MG TAB PO SCH (09:08)
[2021-05-13 09:09] VITALS: BP 155/87; PULSE 55; RESP 18; TEMP 98.4
[2021-05-13 09:35] LABS: Basophils % (A) 1 %; Eosinophils # (A) 0.3 k/uL (0-0.7); Eosinophils % (A) 5 %; HGB 16.8 gm/dL (13.0-17.5); Lymphocytes # (A) 1.5 k/uL (1.0-4.8); Lymphocytes % (A) 24 %; MCH 30.7 pg (25.0-35.0); MCHC 33.5 g/dL (31.0-37.0); MCV 91.5 fL (80.0-100.0); Mean Platelet Volume 7.4; Monocytes # (A) 0.4 k/uL (0-1.0); Monocytes % (A) 6 %; Neutrophils # (A) 4.1 k/uL (1.3-7.7); Neutrophils % (A) 63 %; Platelet Count 147 k/uL (150-450); RBC 5.47 m/uL (4.30-5.90); RDW 13.5 % (11.5-15.5); WBC 6.5 k/uL (3.8-10.6)
[2021-05-13 10:12] LABS: Albumin 3.8 g/dL (3.5-5.0); Calcium 9.3 mg/dL (8.4-10.2); Potassium 4.4 mmol/L (3.5-5.1); Total Bilirubin 0.9 mg/dL (0.2-1.3); Total Protein 6.5 g/dL (6.3-8.2)
--- NOTE | 2021-05-13 11:16 | P.DS ---
Providers Date of admission: 05/10/21 11:56 Expected date of discharge: 05/13/21 Attending physician: Marilou Hoover DO Consults: 05/10/21 11:56 Consult Physician Urgent Consulting Provider: Heather Danielson Consult Reason/Comments: STEMI Do you want consulting provider notified?: Already Contacted 05/11/21 12:30 Consult Physician Routine Consulting Provider: [facility] Consult Reason/Comments: Post Interventional patient Do you want consulting provider notified?: Already Contacted Primary care physician: [facility] Course: Discharge Diagnosis: ST elevation FL Hypothyroidism Hospital Course: This is a 65-year-old gentleman with history of hypothyroidism, who lives by h imself had sense of chest tightness around 2 AM last night. Patient was able to go to bed, but in the morning around 8:30. Patient again started having discomfort on the left side of chest and left shoulder area. There might have been some radiation to the left arm. It was not very intense but annoying. Patient drove himself to the hospital. His EKG showed mild elevation in inferior leads size to of inferior wall FL. Patient received thrombolytic therapy at an outside center and was subsequent transferred to this hospital. By the time patient came to the hospital. Patient has been free of any pain. His EKGs showed resolution of the ST elevations with complaints of T-wave inversion in inferior leads and mild bradycardia. Patient was taken for a heart catheterization and was found to have severe 2 vessel disease. Patient had PCI done to the RCA and LAD. He had an echocardiogram done that showed EF of 50-55%. Patient was started on aspirin Plavix lisinopril and metoprolol and atorvastatin. I counseled the patient regarding the importance of taking his medications especially his dual antiplatelet therapy. Patient verbalized understanding. He was deemed stable for discharge by cardiology. At the time of discharge patient denied any chest pain and he was appreciative of all the care that he received Patient seen and examined at bedside.[] Vital signs reviewed and stable. General: [non toxic], [no distress], [appears at stated age] Derm: [warm], [dry] Head: [atraumatic], [normocephalic], [symmetric] Eyes: [EOMI], [no lid lag], [anicteric sclera] Mouth: [no lip lesion], [mucus membranes moist] Cardiovascular: [S1S2 reg], [no murmur], [positive posterior tibial pulse bilateral], Lungs: [CTA bilateral], [no rhonchi, no rales] , [no accessory muscle use] Abdominal: [soft], [ nontender to palpation], [no guarding], [no appreciable organomegaly] Ext: [no gross muscle atrophy], [no edema], [no contractures] Neuro: [ CN II-XI grossly intact], [no focal neuro deficits] Psych: [Alert], [oriented], [appropriate affect] A total of [33] minutes of time were spent preparing this complex discharge summary . 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 Representative Thyroid] 15 mg PO HS Discharge Medication List Empagliflozin [Jardiance] 5 mg PO DAILY 05/10/21 [History] Thyroid,Pork [Telemarketing Representative Thyroid] 15 mg PO HS 05/12/21 [History] Aspirin 81 mg PO DAILY 30 Days #30 tab 05/13/21 [Rx] Atorvastatin [Lipitor] 80 mg PO DAILY 30 Days #30 tab 05/13/21 [Rx] Clopidogrel [Plavix] 75 mg PO DAILY #30 tab 05/13/21 [Rx] Metoprolol Tartrate [Lopressor] 25 mg PO BID #60 tab 05/13/21 [Rx] lisinopriL [Zestril] 5 mg PO DAILY 30 Days #30 tab 05/13/21 [Rx] Follow up Appointment(s)/Referral(s): Tian Xavier MD [Primary Care Provider] - 1-2 days Heather Danielson MD [STAFF PHYSICIAN] - 1 Week Discharge Disposition: HOME SELF-CARE
[2021-05-13 11:28] LABS: Glucose,Whole Blood 144 mg/dL (75-99)
--- NOTE | 2021-05-13 12:13 | P.PN ---
Subjective Progress Note Date: 05/13/21 HISTORY OF PRESENT ILLNESS: Patient examined this morning at the bedside. Patient denies chest pain or pressure. He denies shortness of breath. Vital signs are stable. He is hoping to be discharged home today. PHYSICAL EXAM: VITAL SIGNS: Reviewed. GENERAL: Well-developed in no acute distress. NECK: Supple. No JVD or thyromegaly LUNGS: Respirations even and unlabored. Lungs essentially clear to auscultation bilaterally. HEART: Regular rate and rhythm. S1 and S2 heard. EXTREMITIES: Normal range of motion. No clubbing or cyanosis. Peripheral pulses intact. No lower extremity edema ASSESSMENT: Acute inferior MS status post thrombolytic therapy and stenting of the RCA and LAD PLAN: Continue current cardiac medications Patient is stable for discharge home today Patient to follow up on an outpatient basis Nurse practitioner note has been reviewed by physician. Signing provider agrees with the documented findings, assessment, and plan of care. Objective - Vital Signs Vital signs: Vital Signs Temp 98.4 F 05/13/21 09:08 Pulse 55 L 05/13/21 09:08 Resp 18 05/13/21 09:08 BP 155/87 05/13/21 09:08 Pulse Ox 95 05/13/21 09:08 Intake & Output 05/12/21 05/13/21 05/13/21 18:59 06:59 18:59 Intake Total 1440 600 240 Balance 1440 600 240 Weight 83.915 kg Intake: Oral 1440 600 240 Other: Voiding Method Toilet Toilet Toilet # Voids 2 4 - Labs CBC & Chem 7: 05/13/21 08:47 05/13/21 08:47 Labs: Abnormal Lab Results - Last 24 Hours (Table) 05/12/21 05/12/21 05/13/21 Range/Units 16:32 20:28 06:10 Plt Count (150-450) k/uL Glucose (74-99) mg/dL POC Glucose (mg/dL) 163 H 155 H 133 H (75-99) mg/dL 05/13/21 05/13/21 05/13/21 Range/Units 08:47 08:47 11:27 Plt Count 147 L (150-450) k/uL Glucose 167 H (74-99) mg/dL POC Glucose (mg/dL) 144 H (75-99) mg/dL
== END 2021-05-13 13:46 | disposition home or self-care (01) | DRG 246 ==
LOC: EC 11:29 → 3SCARD 11:56
PROVIDERS: ADMIT Internal Medicine; ATTEND Internal Medicine
PROC: 027237Z Dilation of Coronary Artery, Three Arteries with Four or More Drug-eluting Intraluminal Devices, Percutaneous Approach (ICD-10-PCS; principal; 2021-05-11 11:00)
PROC: 4A023N7 Measurement of Cardiac Sampling and Pressure, Left Heart, Percutaneous Approach (ICD-10-PCS; 2021-05-11 11:00)
PROC: B2111ZZ Fluoroscopy of Multiple Coronary Arteries using Low Osmolar Contrast (ICD-10-PCS; 2021-05-11 11:00)
DX: I21.19 ST elevation (STEMI) myocardial infarction involving other coronary artery of inferior wall (principal); E03.9 Hypothyroidism, unspecified; E11.9 Type 2 diabetes mellitus without complications; I10 Essential (primary) hypertension; R00.1 Bradycardia, unspecified; J45.909 Unspecified asthma, uncomplicated; Z92.82 Status post administration of tPA (rtPA) in a different facility within the last 24 hours prior to admission to current facility; Z79.82 Long term (current) use of aspirin; Z88.1 Allergy status to other antibiotic agents; Z88.5 Allergy status to narcotic agent; Z88.0 Allergy status to penicillin; Z79.84 Long term (current) use of oral hypoglycemic drugs; Z79.899 Other long term (current) drug therapy; Z79.890 Hormone replacement therapy
CPT/HCPCS: 36415; 80053; 80061; 83735; 84484; 85025; 85610; 85730; 93005; 93306; 93458; 99285

== ENCOUNTER 2021-05-27 23:59 | Observation (INO) | payer MEDICARE ==
--- NOTE | 2021-05-28 03:12 | ED ---
Chest Pain HPI - General Chief Complaint: Chest Pain Stated Complaint: Chest Pain Time Seen by Provider: 05/28/21 00:38 Source: patient Mode of arrival: EMS Limitations: physical limitation - History of Present Illness Initial Comments: This patient is 65-year-old man who is transferred here from [facility]. He had gone there this evening complaint of having some palpitations and left- sided chest discomfort. On arrival the patient was noted to be hypertensive. He is going to be in bigeminy on EKG. His laboratory workup revealed troponin 0.035, and he was transferred here for further cardiology evaluation and treatment. MD Complaint: chest pain -: hour(s) Onset: during rest Pain Location: left chest Pain Radiation: none Severity: moderate Quality: heaviness Consistency: constant Improves With: nothing Worsens With: nothing Other Symptoms: palpitations - Related Data Home Medications Medication Instructions Recorded Confirmed Empagliflozin [Jardiance] 5 mg PO DAILY 05/10/21 05/10/21 Thyroid,Pork [Wellness Consultant Thyroid] 15 mg PO HS 05/12/21 05/12/21 Previous Rx's Medication Instructions Recorded Aspirin 81 mg PO DAILY 30 Days #30 tab 05/13/21 Atorvastatin [Lipitor] 80 mg PO DAILY 30 Days #30 tab 05/13/21 Clopidogrel [Plavix] 75 mg PO DAILY #30 tab 05/13/21 Metoprolol Tartrate [Lopressor] 25 mg PO BID #60 tab 05/13/21 lisinopriL [Zestril] 5 mg PO DAILY 30 Days #30 tab 05/13/21 Allergies Allergy/AdvReac Type Severity Reaction Status Date / Time cephalexin [From Keflex] Allergy Abdominal Verified 05/28/21 00:22 Pain Penicillins Allergy Unknown Verified 05/28/21 00:22 Childhood codeine AdvReac Abdominal Verified 05/28/21 00:22 Pain Review of Systems ROS Statement: Those systems with pertinent positive or pertinent negative responses have been documented in the HPI. ROS Other: All systems not noted in ROS Statement are negative. Constitutional: Denies: fever, chills Respiratory: Denies: cough, dyspnea, wheezes Cardiovascular: Reports: chest pain, palpitations. Denies: orthopnea, edema, syncope Gastrointestinal: Reports: nausea. Denies: abdominal pain, vomiting, melena, hematochezia Genitourinary: Denies: dysuria, hematuria Musculoskeletal: Denies: back pain Skin: Denies: rash Neurological: Denies: headache, weakness, numbness EKG Findings - EKG Results: EKG: interpreted by LI, sinus rhythm (With bigeminy rate 72 bpm) - Blocks, Ethel, Hypertrophy, ST Abn: Repolarization changes or abnormalities: nonspecific abnormality, ST segment, and/or T wave Past Medical History Past Medical History: Asthma, Diabetes Mellitus Additional Past Medical History / Comment(s): hypothyroidism History of Any Multi-Drug Resistant Organisms: None Reported Past Surgical History: No Surgical Hx Reported, Heart Catheterization With Stent Additional Past Surgical History / Comment(s): May 11 stents Past Anesthesia/Blood Transfusion Reactions: No Reported Reaction Past Psychological History: No Psychological Hx Reported Smoking Status: Never smoker Past Alcohol Use History: None Reported Past Drug Use History: None Reported General Exam Limitations: physical limitation General appearance: alert, in no apparent distress Head exam: Present: atraumatic, normocephalic Eye exam: Present: normal appearance. Absent: scleral icterus, conjunctival injection Neck exam: Present: normal inspection Respiratory exam: Present: normal lung sounds bilaterally. Absent: respiratory distress, wheezes, rales, rhonchi, stridor Cardiovascular Exam: Present: irregular rhythm, normal heart sounds. Absent: systolic murmur, diastolic murmur, rubs, gallop GI/Abdominal exam: Present: soft. Absent: distended, tenderness, guarding, rebound, rigid, mass Extremities exam: Present: normal inspection, normal capillary refill. Absent: pedal edema, calf tenderness Back exam: Present: normal inspection. Absent: CVA tenderness (R), CVA tenderness (L) Neurological exam: Present: alert Skin exam: Present: warm, dry, intact, normal color. Absent: rash Course Vital Signs 05/28/21 05/28/21 00:16 01:11 Temperature 98.6 F Pulse Rate 71 65 Respiratory 18 18 Rate Blood Pressure 162/94 137/91 O2 Sat by Pulse 96 96 Oximetry Disposition Clinical Impression: Chest pain, Elevated troponin level Disposition: ADMITTED IP TO THIS HOSP Condition: Fair Instructions (If sedation given, give patient instructions): Chest Pain (ED) Is patient prescribed a controlled substance at d/c from ED?: No Referrals: Cassandra Sanders DO [Primary Care Provider] - 1-2 days
[2021-05-28] MEDS ORDERED: NITROGLYCERIN SL TABS 0.4 MG TAB SUBLINGUAL PRN (03:25)
[2021-05-28] MEDS ORDERED: HEPARIN SODIUM 1,000 UN/ML (10ML VL) IV ONE ×2 (06:00→09:17)
[2021-05-28] MEDS ORDERED: HEPARIN SODIUM 1,000 UN/ML (10ML VL) IV PRN (06:00)
[2021-05-28] MEDS ORDERED: HEPARIN SOD,PORK IN 0.45% NACL 25,000 UNIT in 0.45% NACL 1 250ML.BAG IV SCH (06:00)
--- NOTE | 2021-05-28 06:31 | P.HPIM ---
History of Present Illness H&P Date: 05/28/21 Chief Complaint: chest pain 65 year old male with CAD s/p stents to LAD and RCA 2 weeks ago, DM, HTN patient came in as a transfer from [facility] where he presented due to chest pressure left sided radiating to left arm. and feeling palpitations. denies any associated SOB, diaphoresis , lightheadedness, dizziness, he skipped his lopressor last night due to bradycardia in the 40s. otherwise compliant with the rest of his meds. he did not take his plavix last night either as he was in the ED. since his STEMI on May 11 (s/p stents to RCA and mid LAD), he has been doing well, tolerating physical activity, and feeling well until today. he is compliant with his diet , and his blood sugar under good control per his report at [facility] he was found to have Bigeminy and elevated trops, sent to our hospital for cardiology eval and was initiated on heparin gtt LVEF from last admission end of last month 50-55% currently he is asymptomatic , cafeteria monitor still showing bigeminy heart rate in the mid 60s denies smoking, drugs, or alcohol Review of Systems Pertinent positives as noted in HPI. All other systems were reviewed and are negative Past Medical History Past Medical History: Asthma, Diabetes Mellitus Additional Past Medical History / Comment(s): hypothyroidism History of Any Multi-Drug Resistant Organisms: None Reported Past Surgical History: No Surgical Hx Reported, Heart Catheterization With Stent Additional Past Surgical History / Comment(s): May 11- stents Past Anesthesia/Blood Transfusion Reactions: No Reported Reaction Past Psychological History: No Psychological Hx Reported Smoking Status: Never smoker Past Alcohol Use History: None Reported Past Drug Use History: None Reported - Past Family History family Family Medical History: No Reported History Medications and Allergies Home Medications Medication Instructions Recorded Confirmed Type Empagliflozin [Jardiance] 5 mg PO DAILY 05/10/21 05/10/21 History 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,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] 15 mg PO HS 05/12/21 05/12/21 History Aspirin 81 mg PO DAILY 30 Days #30 tab 05/13/21 Rx Atorvastatin [Lipitor] 80 mg PO DAILY 30 Days #30 tab 05/13/21 Rx Clopidogrel [Plavix] 75 mg PO DAILY #30 tab 05/13/21 Rx Metoprolol Tartrate [Lopressor] 25 mg PO BID #60 tab 05/13/21 Rx lisinopriL [Zestril] 5 mg PO DAILY 30 Days #30 tab 05/13/21 Rx Allergies Allergy/AdvReac Type Severity Reaction Status Date / Time cephalexin [From Keflex] Allergy Abdominal Verified 05/28/21 00:22 Pain Penicillins Allergy Unknown Verified 05/28/21 00:22 Childhood codeine AdvReac Abdominal Verified 05/28/21 00:22 Pain Physical Exam Vitals: Vital Signs Temp Pulse Resp BP Pulse Ox 05/28/21 05:00 70 18 150/92 93 L 05/28/21 03:00 65 18 131/77 05/28/21 02:00 64 18 113/77 94 L 05/28/21 01:11 65 18 137/91 96 05/28/21 00:16 98.6 F 71 18 162/94 96 Intake and Output 05/27/21 05/27/21 05/28/21 14:59 22:59 06:59 Other: Weight 86.636 kg Constitutional: No acute distress, conversant, pleasant Eyes: Anicteric sclerae, moist conjunctiva, Pupils equal round reactive to light ENMT: NC/AT Oropharynx clear, no erythema, or exudates Neck: Supple, FROM, no masses, or JVD No carotid bruits No thyromegaly Lungs: Clear to auscultation Clear to percussion Normal respiratory effort, no accessory muscle use Cardiovascular: Heart regular in rate and rhythm, No murmurs, gallops, or rubs No peripheral edema Abdominal: Soft Nontender, no guarding, rebound or rigidity Abdomen moving with respiration Normoactive bowel sounds No hepatomegaly, No splenomegaly No palpable mass No abdominal wall hernia noted Skin: Normal temperature, tone, texture, turgor No induration No subcutaneous nodules No rash, lesions No ulcers Extremities: No digital cyanosis No clubbing Pedal pulses intact and symmetrical Radial pulses intact and symmetrical No calf tenderness Psychiatric: Alert and oriented to person, place and time Appropriate affect fair judgement Neuro Muscles Strength 5/5 in all 4 extremities Sensation to light touch grossly present throughout Cranial nerves II-XII grossly intact No focal sensory deficits Lymphatics: no palpable cervical or supraclavicular , or inguinal lymph nodes Results Labs: Abnormal Lab Results - Last 24 Hours (Table) 05/28/21 05/28/21 Range/Units 01:02 03:45 Troponin I 0.035 H* 0.037 H* (0.000-0.034) ng/mL Assessment and Plan Assessment: symptomatic bradycardia atypical chest pain , with recent STEMI s/p stents to mid LAD and RCA EKG showing Bigeminy plan ASA, plavix, statin heparin gtt cafeteria monitor HEART score 6 cardiology consult LVEF apr 2021 50-55% continue lopressor with hold parameters check electrolytes declined nitro , currently asymptomatic chronic conditions HTN, DM , hypothyroid resume home meds insulin sliding scale blood sugar well controlled per patient report full code DVT PPX heparin gtt for ACS anticipated length of stay < 2 midnight s
[2021-05-28] MEDS ORDERED: HEPARIN SODIUM,PORCINE 10,000 UNIT in SODIUM CHLORIDE 0.9% 1,000 ML IRRIGATION PRN (07:00)
[2021-05-28] MEDS ORDERED: HEPARIN SODIUM,PORCINE 2,500 UNIT in SODIUM CHLORIDE 0.9% 250 ML IRRIGATION PRN (07:00)
[2021-05-28 07:30] LABS: Calcium 8.6 mg/dL (8.4-10.2); Potassium 4.1 mmol/L (3.5-5.1)
[2021-05-28 07:32] LABS: Partial Thromboplastin Time 24.7 sec (22.0-30.0); Prothrombin Time 10.9 sec (9.0-12.0)
[2021-05-28 07:43] LABS: Basophils # (A) 0.1 k/uL (0-0.2); Basophils % (A) 1 %; Eosinophils # (A) 0.5 k/uL (0-0.7); Eosinophils % (A) 7 %; HCT 50.1 % (39.0-53.0); HGB 17.3 gm/dL (13.0-17.5); Lymphocytes # (A) 1.6 k/uL (1.0-4.8); Lymphocytes % (A) 25 %; MCH 31.5 pg (25.0-35.0); MCHC 34.6 g/dL (31.0-37.0); Mean Platelet Volume 7.8; Monocytes # (A) 0.5 k/uL (0-1.0); Monocytes % (A) 7 %; Neutrophils # (A) 3.6 k/uL (1.3-7.7); Neutrophils % (A) 57 %; Platelet Count 179 k/uL (150-450); RBC 5.51 m/uL (4.30-5.90); RDW 13.4 % (11.5-15.5); WBC 6.4 k/uL (3.8-10.6)
[2021-05-28] MEDS ORDERED: ALPRAZolam 0.5 MG TAB PO PRN (08:11)
[2021-05-28] MEDS ORDERED: ALPRAZolam 0.25 MG TAB PO PRN (08:11)
[2021-05-28] MEDS ORDERED: ASPIRIN 325 MG TAB PO STA (08:24)
[2021-05-28] MEDS: SODIUM CHLORIDE 0.9% 1,000 ML IV SCH ×3 (08:32→21:04)
[2021-05-28] MEDS: PANTOPRAZOLE 40 MG TABLET PO SCH (08:32)
[2021-05-28] MEDS: METOPROLOL TARTRATE 25 MG TAB PO SCH ×2 (08:32→19:20)
[2021-05-28] MEDS ORDERED: VERAPAMIL 2.5 MG/ML 2 ML AMP ONE (08:38)
[2021-05-28] MEDS ORDERED: LIDOCAINE 1% INJ 10MG/ML (20 ML MDV) ONE (08:38)
[2021-05-28] MEDS ORDERED: fentaNYL (PF) 50 MCG/ML 2 ML AMP ONE (09:03)
[2021-05-28] MEDS ORDERED: HEPARIN SODIUM 1,000 UN/ML (10ML VL) ONE (09:04)
[2021-05-28] MEDS ORDERED: IV FLUID CONTINUATION 900 ML IV ONE (09:05)
[2021-05-28] MEDS ORDERED: fentaNYL (PF) 50 MCG/ML 2 ML AMP IV ONE (09:07)
[2021-05-28] MEDS ORDERED: LIDOCAINE 1% INJ 10MG/ML (20 ML MDV) SQ ONE (09:07)
[2021-05-28] MEDS ORDERED: MIDAZOLAM 2 MG/2 ML VIAL IV ONE (09:07)
[2021-05-28] MEDS ORDERED: VERAPAMIL SYRINGE (5 MG/10 ML) INTRAARTER ONE (09:11)
[2021-05-28] MEDS ORDERED: IOPAMIDOL-370 125ML BTL INJ ONE (09:30)
[2021-05-28] MEDS ORDERED: RX INFO: IV CONTRAST WAS GIVEN 1 EACH MISC MISCELLANE PRN (09:32)
--- NOTE | 2021-05-28 09:40 | P.CARDCATH ---
Date of Procedure: 05/28/21 Description of Procedure: HISTORY: This is a 65-year-old gentleman was recently admitted to the hospital with inferior wall [place] and had multiple stents in the RCA and also in the mid LAD. Patient is admitted now with complaints of bradycardia palpitations and some chest discomfort with a borderline troponin abnormalities. Patient is advised to have cardiac catheterization for definitive diagnosis CONSENT:I have discussed the risks, benefits and alternative therapies for the above-mentioned procedure and for both sedation/analgesia as well as necessary blood product administration, if indicated, as they pertain to this patient. The patient has indicated understanding and acceptance of the risks and procedures discussed. PROCEDURE: Patient was brought to the lab in a fasting state. Patient was given some IV sedation. The right wrist is infiltrated with lidocaine and right radial artery was entered using Seldinger technique. A 6-English catheter was left in place and selective coronary arteriography was performed. Patient tolerated the procedure well. TR band was applied for hemostasis. No immediate complications were noted and patient was transferred to [facility] in a stable condition Conscious Sedation: Versed 1mg, heparin 4000 Fentanyl 25 g Duration 16minutes HEMODYNAMICS: . The aortic pressure is about 160/90. Left ventricular end- diastolic pressure was not measured SELECTIVE CORONARY ARTERIOGRAPHY: LEFT MAIN: Large caliber vessel and divides immediately into LAD and circumflex THE LEFT ANTERIOR DESCENDING CORONARY ARTERY: . This is a good caliber vessel with a patent stent in the midportion. The rest of the LAD is free of occlusive disease THE LEFT CIRCUMFLEX AND IS CORONARY ARTERY: . This is a codominant vessel giving rise good-sized OM branch and free of occlusive disease THE RIGHT CORONARY ARTERY: . This is also a dominant vessel. The patent stents in the proximal to mid and also in the distal portion. No significant obstructive disease noted LEFT VENTRICULOGRAPHY: Not performed FINAL IMPRESSION: . Stable coronary artery disease with patent stents in the right coronary artery and also in the LAD PLAN: Maximum medical therapy and this factor modification. Further evaluation for cardiac arrhythmia PROGNOSIS: Fair.
[2021-05-28] MEDS: INSULIN ASPART (NovoLOG) 100 UNIT/ML VIAL SQ SCH ×4 (10:00→21:04)
[2021-05-28 10:06] LABS: Glucose,Whole Blood 118 mg/dL (75-99)
--- NOTE | 2021-05-28 10:09 | P.CRDCN ---
History of Present Illness History of present illness: Known coronary artery disease with recent inferior wall myocardial infarction cath and angioplasty comes to Hospital complaining of chest discomfort not feeling well tightness and palpitations. He describes his chest pain is precordial chest pressure. There is no definite radiation to neck, back EKG shows sinus rhythm without acute ST-T wave changes. Troponins are mildly elevated. Given the recent cardiac intervention elevated troponin unexplained chest pressure I advised the patient to undergo cardiac catheterization he has been explained of risk benefits and alternatives understood and accepted Dr. Danielson his primary silver plater will perform the same. I reviewed his ang iographic data from the recent hospitalization I reviewed his labs and other test results Review of systems: Constitutional: Denies chills. Denies fever. Eyes: Denies blurred vision. Denies pain. Ears, nose, mouth and throat: Denies headache. Denies sore throat. Cardiovascular: Complaints of chest pain Denies shortness of breath. Respiratory: Denies cough. Gastrointestinal: Denies abdominal pain. Denies diarrhea. Denies nausea. Denies vomiting. Musculoskeletal: Denies myalgias. Integumentary: Denies pruritus. Denies rash. Neurological: Denies numbness. Denies weakness. Psychiatric: Denies anxiety. Denies depression. Endocrine: Denies fatigue. Denies weight change. Genitourinary: Denies burning, hematuria, frequency of urination. Hematological: No anemia or excess bleeding. This is not associated with diaphoresis General: The patient is awake and alert, in no distress, and does not appear acutely ill. Skin: Skin is warm and dry and no rashes or lesions are noted. Eye: Pupils are equal, round and reactive to light, extra-ocular movements are intact; there is normal conjunctiva bilaterally. Ears, nose, mouth and throat: There are moist mucous membranes and no oral lesions. Neck: The neck is supple, there is no tenderness or JVD. Cardiovascular: There is a regular rate and rhythm. No murmur, rub or gallop is appreciated. Respiratory: Lungs are clear to auscultation, respirations are non-labored, breath sounds are equal. Gastrointestinal: Soft, non-distended, non-tender abdomen without masses or organomegaly noted. There is no rebound or guarding present. Bowel sounds are unremarkable. Back: There is no tenderness to palpation in the midline. There is no obvious deformity. Musculoskeletal: Normal ROM, no tenderness, There is no pedal edema. There is no calf tenderness or swelling. Extremities: No edema. Vascular: Femoral pulse is normal. Posterior tibial pulses are normal .Dorsalis pedis is palpable. Neurological: CN II-XII intact. There are no obvious motor or sensory deficits. Speech is normal. Psychiatric: Cooperative, appropriate mood & affect, normal judgment. Assessment and plan: Non-ST segment elevation PA Patient will undergo cardiac catheterization will decide on further course of action based on the test results Past Medical History Past Medical History: Asthma, Diabetes Mellitus Additional Past Medical History / Comment(s): hypothyroidism History of Any Multi-Drug Resistant Organisms: None Reported Past Surgical History: No Surgical Hx Reported, Heart Catheterization With Stent Additional Past Surgical History / Comment(s): May 11 stents Past Anesthesia/Blood Transfusion Reactions: No Reported Reaction Past Psychological History: No Psychological Hx Reported Smoking Status: Never smoker Past Alcohol Use History: None Reported Past Drug Use History: None Reported - Past Family History family Family Medical History: No Reported History Medications and Allergies Home Medications Medication Instructions Recorded Confirmed Type Empagliflozin [Jardiance] 2.5 mg PO DAILY 05/10/21 05/28/21 History 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,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] 15 mg PO HS 05/12/21 05/28/21 History Aspirin 81 mg PO DAILY 30 Days #30 tab 05/13/21 05/28/21 Rx Metoprolol Tartrate [Lopressor] 25 mg PO BID #60 tab 05/13/21 05/28/21 Rx Atorvastatin [Lipitor] 80 mg PO HS 05/28/21 05/28/21 History Clopidogrel [Plavix] 75 mg PO HS 05/28/21 05/28/21 History lisinopriL [Zestril] 5 mg PO HS 05/28/21 05/28/21 History Allergies Allergy/AdvReac Type Severity Reaction Status Date / Time cephalexin [From Keflex] Allergy Abdominal Verified 05/28/21 07:41 Pain Penicillins Allergy Unknown Verified 05/28/21 07:41 Childhood codeine AdvReac Abdominal Verified 05/28/21 07:41 Pain Physical Exam Vitals: Vital Signs Temp Pulse Pulse Resp BP BP Pulse Ox 05/28/21 09:47 57 L 16 121/84 95 05/28/21 09:34 16 116/89 97 05/28/21 07:00 73 18 05/28/21 06:00 69 18 05/28/21 05:00 70 18 150/92 93 L 05/28/21 03:00 65 18 131/77 05/28/21 02:00 64 18 113/77 94 L 05/28/21 01:11 65 18 137/91 96 05/28/21 00:16 98.6 F 71 18 162/94 96 Intake and Output 05/27/21 05/28/21 05/28/21 22:59 06:59 14:59 Intake Total 100 Balance 100 Intake: IV 100 Other: Weight 86.636 kg Results 05/28/21 06:27 05/28/21 06:32 Cardiac Enzymes 05/28/21 05/28/21 05/28/21 Range/Units 01:02 03:45 06:27 Troponin I 0.035 H* 0.037 H* 0.030 (0.000-0.034) ng/mL Coagulation 05/28/21 Range/Units 06:27 PT 10.9 (9.0-12.0) sec APTT 24.7 (22.0-30.0) sec CBC 05/28/21 Range/Units 06:27 WBC 6.4 (3.8-10.6) k/uL RBC 5.51 (4.30-5.90) m/uL Hgb 17.3 (13.0-17.5) gm/dL Hct 50.1 (39.0-53.0) % Plt Count 179 (150-450) k/uL Comprehensive Metabolic Panel 05/28/21 Range/Units 06:32 Sodium 137 (137-145) mmol/L Potassium 4.1 (3.5-5.1) mmol/L Chloride 106 (98-107) mmol/L Carbon Dioxide 24 (22-30) mmol/L BUN 23 H (9-20) mg/dL Creatinine 1.15 (0.66-1.25) mg/dL Glucose 129 H (74-99) mg/dL Calcium 8.6 (8.4-10.2) mg/dL Current Medications Generic Name Dose Route Start Last Admin Trade Name Freq PRN Reason Stop Dose Admin Alprazolam 0.25 mg 05/28/21 08:11 Alprazolam 0.25 Mg Tab PO Q6HR PRN Mild Anxiety Alprazolam 0.5 mg 05/28/21 08:11 Alprazolam 0.5 Mg Tab PO Q6HR PRN Moderate Anxiety Aspirin 81 mg 05/29/21 09:00 Aspirin 81 Mg PO DAILY JANEE Atorvastatin Calcium 80 mg 05/28/21 21:00 Atorvastatin 80 Mg Tab PO HS JANEE Clopidogrel Bisulfate 75 mg 05/28/21 21:00 Clopidogrel 75 Mg Tab PO HS JANEE Sodium Chloride 1,000 mls @ 100 mls/hr 05/28/21 03:30 05/28/21 08:32 Saline 0.9% IV 100 mls/hr .Q10H JANEE Administration Heparin Sodium (Porcine) 10, 1,001 mls @ 999 mls/hr 05/28/21 07:00 000 unit/ Sodium Chloride IRRIGATION 05/28/21 20:00 ONCE PRN INTRA-OP Heparin Sodium (Porcine) 2,500 250.5 mls @ 250 mls/hr 05/28/21 07:00 unit/ Sodium Chloride IRRIGATION 05/28/21 20:00 ONCE PRN INTRA-OP Insulin Aspart 0 unit 05/28/21 07:30 05/28/21 10:00 Insulin Aspart (Novolog) 100 Unit/Ml Vial SQ Not Given ACHS [facility] Protocol Lisinopril 5 mg 05/28/21 21:00 Lisinopril 5 Mg Tab PO HS JANEE Metoprolol Tartrate 25 mg 05/28/21 09:00 05/28/21 08:32 Metoprolol Tartrate 25 Mg Tab PO 25 mg BID JANEE Administration Miscellaneous Information 1 each 05/28/21 09:32 Rx Info: Iv Contrast Was Given 1 Each Misc MISCELLANE 05/30/21 09:32 DAILY PRN Per Protocol Nitroglycerin 0.4 mg 05/28/21 03:25 Nitroglycerin Sl Tabs 0.4 Mg Tab SUBLINGUAL Q5M PRN Chest Pain Pantoprazole Sodium 40 mg 05/28/21 07:30 05/28/21 08:32 Pantoprazole 40 Mg Tablet PO 40 mg [id number] JANEE Administration Thyroid 15 mg 05/28/21 21:00 Thyroid, Pork 30 Mg Tab PO HS JANEE Intake and Output 05/27/21 05/28/21 05/28/21 22:59 06:59 14:59 Intake Total 100 Balance 100 Intake: IV 100 Other: Weight 86.636 kg 05/28/21 06:27 05/28/21 06:32
[2021-05-28 12:58] LABS: Glucose,Whole Blood 115 mg/dL (75-99)
[2021-05-28 17:06] LABS: Glucose,Whole Blood 177 mg/dL (75-99)
[2021-05-28] MEDS: CLOPIDOGREL 75 MG TAB PO SCH ×2 (19:20→19:26)
[2021-05-28] MEDS: lisinopriL 5 MG TAB PO SCH (19:20)
[2021-05-28 20:53] LABS: Glucose,Whole Blood 106 mg/dL (75-99)
[2021-05-28] MEDS ORDERED: THYROID, PORK 30 MG TAB PO SCH (21:00)
[2021-05-28] MEDS ORDERED: ATORVASTATIN 80 MG TAB PO SCH (21:00)
--- NOTE | 2021-05-29 07:20 | ECHOF ---
Referral Reason:Hx STEMI, recurrent PVC's MEASUREMENTS -------- HEIGHT: 175.3 cm WEIGHT: 86.6 kg BP: 148/88 RVIDd: 3.1 cm (< 3.3) IVSd: 1.1 cm (0.6 - 1.1) LVIDd: 5.2 cm (3.9 - 5.3) LVPWd: 1.1 cm (0.6 - 1.1) IVSs: 1.8 cm LVIDs: 3.5 cm LVPWs: 1.5 cm LA Diam: 3.4 cm (2.7 - 3.8) LAESV Index (A-L): 23.41 ml/m Ao Diam: 3.6 cm (2.0 - 3.7) AV Cusp: 2.4 cm (1.5 - 2.6) MV EXCURSION: 15.271 mm (> 18.000) MV EF SLOPE: 66 mm/s (70 - 150) EPSS: 0.9 cm MV E Panfilo: 0.71 m/s MV DecT: 206 ms MV A Panfilo: 0.70 m/s MV E/A Ratio: 1.02 RAP: 5.00 mmHg RVSP: 20.18 mmHg FINDINGS -------- Sinus rhythm. This was a technically adequate study. The left ventricular size is normal. There is borderline concentric left ventricular hypertrophy. Overall left ventricular systolic function is low-normal with, an EF between 50 - 55 %. The right ventricle is normal in size. Normal LA size by volume 22+/-6 ml/m2. The right atrium is normal in size. Interatrial and interventricular septum intact. Trace to mild aortic regurgitation. Mild mitral regurgitation is present. Mild tricuspid regurgitation present. Right ventricular systolic pressure is normal at < 35 mmHg. The pulmonic valve was not well visualized. The aortic root size is normal. IVC Not well visulized. There is no pericardial effusion. CONCLUSIONS -------- 1. The left ventricular size is normal. 2. There is borderline concentric left ventricular hypertrophy. 3. Overall left ventricular systolic function is low-normal with, an EF between 50 - 55 %. 4. Trace to mild aortic regurgitation. 5. Mild mitral regurgitation is present. 6. Mild tricuspid regurgitation present. 7. There is no pericardial effusion. [employer] DEVELOPER: Yenifer Guaman RDCS
[2021-05-29 07:29] LABS: Basophils # (A) 0.1 k/uL (0-0.2); Basophils % (A) 2 %; Eosinophils # (A) 0.5 k/uL (0-0.7); Eosinophils % (A) 10 %; HCT 49.9 % (39.0-53.0); HGB 16.5 gm/dL (13.0-17.5); Lymphocytes # (A) 1.4 k/uL (1.0-4.8); Lymphocytes % (A) 28 %; MCH 30.2 pg (25.0-35.0); MCHC 33.1 g/dL (31.0-37.0); MCV 91.4 fL (80.0-100.0); Mean Platelet Volume 7.4; Monocytes # (A) 0.4 k/uL (0-1.0); Monocytes % (A) 7 %; Neutrophils # (A) 2.6 k/uL (1.3-7.7); Neutrophils % (A) 51 %; Platelet Count 170 k/uL (150-450); RBC 5.46 m/uL (4.30-5.90); RDW 13.4 % (11.5-15.5); WBC 5.1 k/uL (3.8-10.6)
[2021-05-29 07:35] LABS: Prothrombin Time 10.9 sec (9.0-12.0)
[2021-05-29 07:39] LABS: African American GFR (CKD) 79 (>60 ml/min/1.73 sqM); Anion Gap 5 mmol/L; Blood Urea Nitrogen 21 mg/dL (9-20); Carbon Dioxide 25 mmol/L (22-30); Chloride 106 mmol/L (98-107); Glucose 139 mg/dL (74-99); Non-African American GFR(CKD) 68 (>60 ml/min/1.73 sqM); Potassium 4.4 mmol/L (3.5-5.1); Sodium 136 mmol/L (137-145)
[2021-05-29 07:59] LABS: Glucose,Whole Blood 141 mg/dL (75-99)
[2021-05-29] MEDS: METOPROLOL TARTRATE 25 MG TAB PO SCH (08:29)
[2021-05-29] MEDS: PANTOPRAZOLE 40 MG TABLET PO SCH (08:29)
[2021-05-29] MEDS: lisinopriL 5 MG TAB PO SCH (08:29)
[2021-05-29] MEDS: INSULIN ASPART (NovoLOG) 100 UNIT/ML VIAL SQ SCH ×2 (08:30→12:00)
[2021-05-29] MEDS ORDERED: ASPIRIN 325 MG TAB PO SCH (09:00)
[2021-05-29] MEDS ORDERED: ASPIRIN 81 MG PO SCH (09:00)
--- NOTE | 2021-05-29 10:08 | P.PN ---
Subjective Progress Note Date: 05/29/21 HISTORY OF PRESENT ILLNESS: Patient is status post cardiac catheterization yesterday revealing stable coronary artery disease with patent stents in the RCA and in the LAD. Medical management was recommended. Patient exhibited as were the bedside. Patient denies chest pain or pressure. He denies shortness of breath. Vital signs are stable. PHYSICAL EXAM: VITAL SIGNS: Reviewed. GENERAL: Well-developed in no acute distress. NECK: Supple. No JVD or thyromegaly LUNGS: Respirations even and unlabored. Lungs essentially clear to auscultation bilaterally. HEART: Regular rate and rhythm. S1 and S2 heard. EXTREMITIES: Normal range of motion. No clubbing or cyanosis. Peripheral pulses intact. No lower extremity edema. Right radial cath site with pulses present ASSESSMENT: Non-STEMI, s/p cardiac cath Coronary artery disease with previous PCI Hypertension Hyperlipidemia PLAN: Continue current cardiac medications Patient may be discharged home today from a cardiac standpoint and follow up on an outpatient basis Nurse practitioner note has been reviewed by physician. Signing provider agrees with the documented findings, assessment, and plan of care. Objective - Vital Signs Vital signs: Vital Signs Temp 97.8 F 05/29/21 07:00 Pulse 46 L 05/29/21 08:00 Resp 17 05/29/21 08:00 BP 151/81 05/29/21 07:00 Pulse Ox 97 05/29/21 07:00 Intake & Output 05/28/21 05/29/21 05/29/21 18:59 06:59 18:59 Intake Total 1519 300 Balance 1519 300 Weight 86.636 kg Intake: IV 100 Oral 1419 300 Other: Voiding Method Toilet # Voids 1 1 - Labs CBC & Chem 7: 05/29/21 06:48 05/29/21 06:48 Labs: Abnormal Lab Results - Last 24 Hours (Table) 05/28/21 05/28/21 05/28/21 Range/Units 10:03 12:56 17:04 Sodium (137-145) mmol/L BUN (9-20) mg/dL Glucose (74-99) mg/dL POC Glucose (mg/dL) 118 H 115 H 177 H (75-99) mg/dL 05/28/21 05/29/21 05/29/21 Range/Units 20:52 06:48 07:58 Sodium 136 L (137-145) mmol/L BUN 21 H (9-20) mg/dL Glucose 139 H (74-99) mg/dL POC Glucose (mg/dL) 106 H 141 H (75-99) mg/dL
[2021-05-29 10:56] LABS: Chol/HDL Ratio 6.86 Ratio; LDL Cholesterol,Calculated 148.7 mg/dL (0.0-131.0); VLDL Calculation 19.58 mg/dL (5.00-40.00)
[2021-05-29 11:44] LABS: Glucose,Whole Blood 125 mg/dL (75-99)
[2021-05-29] MEDS: SODIUM CHLORIDE 0.9% 1,000 ML IV SCH (12:00)
[2021-05-29 14:23] VITALS: BP 138/78; PULSE 50; RESP 16; TEMP 97.4
== END 2021-05-29 14:41 | disposition home or self-care (01) ==
LOC: EC 23:59 → 3SCARD 05-28 03:25 → 6NMEDSUR 05-28 09:55
PROVIDERS: ADMIT Internal Medicine; ATTEND Internal Medicine
DX: I22.2 Subsequent non-ST elevation (NSTEMI) myocardial infarction (principal); I21.19 ST elevation (STEMI) myocardial infarction involving other coronary artery of inferior wall; I25.10 Atherosclerotic heart disease of native coronary artery without angina pectoris; I10 Essential (primary) hypertension; I08.3 Combined rheumatic disorders of mitral, aortic and tricuspid valves; R00.1 Bradycardia, unspecified; R00.8 Other abnormalities of heart beat; E03.9 Hypothyroidism, unspecified; E11.9 Type 2 diabetes mellitus without complications; J45.909 Unspecified asthma, uncomplicated; E78.5 Hyperlipidemia, unspecified; Z79.02 Long term (current) use of antithrombotics/antiplatelets; Z79.82 Long term (current) use of aspirin; Z79.890 Hormone replacement therapy; Z79.84 Long term (current) use of oral hypoglycemic drugs; Z79.899 Other long term (current) drug therapy; Z88.0 Allergy status to penicillin; Z88.1 Allergy status to other antibiotic agents; Z88.5 Allergy status to narcotic agent; Z95.5 Presence of coronary angioplasty implant and graft
CPT/HCPCS: 99285; 36415; 93005; 93306; 93454; 80061; 80048 ×2; 84484; 85025 ×2; 85610 ×2; 85730; G0378 ×3; J2250; J2001; J3010; J1644; Q9967